=== PATIENT | female | born 1955 | race Asian ===

== ENCOUNTER 2018-11-06 07:48 | Day surgery (SDC) | payer OTHER ==
[2018-11-05 12:41] VITALS: BMI 29.2
--- NOTE | 2018-11-06 08:12 | HP ---
[facility]ellite [facility] [place] - Chief Complaint Chief Complaint: left shoulder pain - Past Medical History Allergies/Adverse Reactions: Allergies Allergy/AdvReac Type Severity Reaction Status Date / Time aspirin Allergy Verified 11/05/18 12:42 - Current Medications Current Medications: Home Medications Medication Instructions Recorded Amlodipine Besylate [Norvasc -] 5 mg PO DAILY 11/05/18 Atorvastatin Ca [Lipitor] 10 mg PO HS 11/05/18 Cholecalciferol (Vitamin D3) 1,000 unit PO DAILY 11/05/18 [Vitamin D3] Hydrocodone/Acetaminophen 1 each PO Q6H #30 tablet MDD 4 11/06/18 [Hydrocodone-Acetamin 5-325 mg] Satellite Physical Exam - Physical Examination General Appearance: Well Nourished, Well Developed, Alert & Oriented x3 ENT: Clear Lung: Normal air movement Heart: Regular rate & rhythm Extremities: Other (left shoulder- + ttp ,dec rom, + neer, + nicholas, + empty can, nvi, MRI + rct) Neurological: Intact, Alert, Oriented Satellite Impression/Plan - Impression/Plan Impression: left shoulder rct Operative Procedure: left shoulder arthroscopy with RCR, SAD Date to be Performed: 11/06/18
[2018-11-06] MEDS ORDERED: ROPIVACAINE HCL 0.5% 30ML VIAL ONE (09:28)
[2018-11-06] MEDS ORDERED: MIDAZOLAM HCL 2 MG/2 ML SINGLE DOSE VIAL ONE ×3 (09:29→09:45)
[2018-11-06] MEDS ORDERED: LIDOCAINE HCL/PF 2% SDV 5ML VIAL ONE (09:45)
[2018-11-06] MEDS ORDERED: PROPOFOL 20 ML ONE ×4 (09:45→11:32)
[2018-11-06] MEDS ORDERED: ceFAZolin SODIUM 1 GM VIAL IVPB ONE (10:43)
[2018-11-06] MEDS ORDERED: LABETALOL HCL 5 MG/1 ML (100MG/20 ML VIAL) ONE (11:43)
[2018-11-06] MEDS ORDERED: ONDANSETRON 4 MG/2 ML VIAL IVPUSH PRN (11:56)
[2018-11-06] MEDS ORDERED: oxyCODONE HCL 5 MG TABLET PO PRN ×2 (11:56)
[2018-11-06] MEDS ORDERED: ePHEDrine SULFATE 50 MG/1 ML AMPULE ONE ×3 (11:59)
[2018-11-06] MEDS ORDERED: LACTATED RINGERS SOLUTION 1,000 ML IV SCH (12:00)
--- NOTE | 2018-11-06 12:08 | OP ---
Operative Note - Note: Operative Date: 11/06/18 ([facility]) Pre-Operative Diagnosis: left shouder rct Operation: left shoulder arthroscopy with RCR, SAD Implants: 2 arthrex swivelocks Post-Operative Diagnosis: Same as Pre-op Surgeon: Brant Santos Park Manager: Yousif Laurent Anesthesiologist/CASH PROCESSOR: Hany Huggins Anesthesia: General, Local Specimens Removed: shavings Estimated Blood Loss (mls): 5 Operative Report Dictated: Yes
[2018-11-06 12:30] VITALS: TEMP 97.3
[2018-11-06 15:21] VITALS: BP 118/67; PULSE 72
--- NOTE | 2018-11-06 15:30 | OP ---
DATE OF OPERATION: 11/06/2018 PREOPERATIVE DIAGNOSIS: Left shoulder impingement syndrome and rotator cuff tear. POSTOPERATIVE DIAGNOSIS: Left shoulder impingement syndrome and rotator cuff tear. PROCEDURE: Left shoulder arthroscopy, subacromial decompression, and arthroscopic rotator cuff repair. SURGEON: Brant Santos MD HEALTH AND SAFETY MANAGER: SIMONA Cody MOBILE MECHANIC: , REGULATORY COMPLIANCE MANAGER ANESTHESIA: Left interscalene block with MAC anesthesia. DRAINS: None. COMPLICATIONS: None. SPECIMENS: Arthroscopic shavings. BLOOD LOSS: Minimal. BLOOD GIVEN: None. FLUID REPLACEMENT: PlasmaLyte, 1000 mL. DESCRIPTION OF PROCEDURE: The patient is a 63-year-old female with a preoperative diagnosis of a left shoulder impingement syndrome and rotator cuff tear. After understanding the potential risks, complications, alternatives, benefits of surgery versus nonsurgical treatment, the patient elected to undergo this procedure. Patient brought to the operating room, peripheral IV placed, and IV sedation was given. Left interscalene block was performed. MAC anesthesia was induced. The patient was placed into the beach-chair position with ample padding throughout. The left upper extremity was prepped and draped in sterile fashion. The bony landmarks were marked out with a marking pen. Posterior portal was established. A diagnostic glenohumeral arthroscopy was performed. The patients glenohumeral joint showed that she had a clear crescent-shaped full-thickness tear through the supraspinatus insertion. The labrum, biceps tendon, and glenohumeral joint all looked good. Next, our attention was turned to the subacromial space. The lateral portal was established under direct visualization using a spinal needle. A Green cannula was then introduced into the subacromial space. A soft tissue bursectomy/extensive debridement was done with the ArthroCare Wand. There was a lot of bursitis. This was removed. This revealed a very large subacromial spur. Bony decompression was done with a 5-mm oval bur. It was fine-tuned in reverse, and then, with a straight shaver, there was no distal clavicle spur. The decompression was quite good. The arm was put through a full range of motion. There were no other points of impingement. After the bursal side bursectomy, this revealed a full-thickness rotator cuff tear. I cleared out the lateral subdeltoid bursa and determined that the repair could be done arthroscopically. Using the Scorpio Needle Passer, 3 FiberWires were placed in the middle to anterior half of the supraspinatus tear. They were put through an Arthrex SwiveLock anchor, put through to the anterior portion of the rotator cuff insertion. This brought about 2/3 of the rotator cuff tear down to where it was supposed to be. Next, I put in 2 additional FiberWires in the more posterior half of the tear, and these were again put through an Arthrex SwiveLock anchor and brought down into the humerus. This completely covered the humerus. The arm was put through a full range of motion. It moved as a unit. The rotator cuff tear was very repairable and covered the entire head as mentioned. The area was copiously irrigated and washed out. All excess saline and debris were removed. Final photographs were taken. The arthroscopy portals were closed with 3-0 nylon. The area was then washed, dried, and covered with Aquacel dressing. The patient was placed into a shoulder immobilizer. The patient was taken down out of the beach-chair position. Total operative repair was about 45 minutes. There were no complications during the case. The patient tolerated the procedure quite well and was brought to the ambulatory recovery room in stable condition. Ashley [id number]
--- NOTE | 2018-11-07 18:35 | PATH ---
Surgical Pathology Report Patient Name: TOSHA BARTON Med. Rec. #: [id number] /Age/Gender: 1955 (Age: 63) / F Account: [id number] Location: [facility] SURGICAL Taken: 11/06/2018 Received: 11/06/2018 Reported: 11/07/2018 Physicians: Brant Santos M.D. Specimen(s) Received LEFT SHOULDER SHAVINGS Clinical History Left shoulder tear Final Diagnosis SHOULDER SHAVINGS, LEFT, ARTHROSCOPY, ROTATOR CUFF REPAIR: FRAGMENTS OF BENIGN CARTILAGE, DENSE FIBROCONNECTIVE TISSUE, ADIPOSE TISSUE, AND SKELETAL MUSCLE. Electronically Signed Sue Aburto M.D. Gross Description Received in formalin, labeled "left shoulder shavings," is a 4.5 x 4.5 x 0.4 cm. aggregate of vargas-yellow soft tissue fragments. A shared services representative portion is submitted in one cassette. /11/06/2018 saudi11/06/2018
== END 2018-11-06 16:00 | disposition home or self-care (01) ==
LOC: JASU-SURG 07:48
PROVIDERS: ATTEND Orthopaedic Surgery
PROC: 0LQ24ZZ Repair Left Shoulder Tendon, Percutaneous Endoscopic Approach (ICD-10-PCS; principal; 2018-11-06 10:30)
PROC: 0RNK4ZZ Release Left Shoulder Joint, Percutaneous Endoscopic Approach (ICD-10-PCS; 2018-11-06 10:30)
DX: M75.122 Complete rotator cuff tear or rupture of left shoulder, not specified as traumatic (principal); M75.42 Impingement syndrome of left shoulder
CPT/HCPCS: 88304-TC

== ENCOUNTER 2020-06-29 13:27 | Inpatient (IN) | payer OTHER ==
[2020-06-29 13:57] VITALS: BMI 30.9
[2020-06-29 19:08] LABS: BASO % 2.2 % (0-2.0); EOS % 3.2 % (0-4.5); HEMATOCRIT 35.9 % (32.4-45.2); HEMOGLOBIN 11.6 GM/dL (10.7-15.3); LYMPH % 15.7 % (8-40); MCH 28.1 pg (25.7-33.7); MCHC 32.4 g/dl (32.0-36.0); MEAN CELL VOLUME 86.7 fl (80-96); MEAN PLT VOLUME 7.4 fl (7.5-11.1); MONO % 11.3 % (3.8-10.2); NEUT % 67.6 % (42.8-82.8); PLATELET COUNT 199 K/MM3 (134-434); RBC 4.14 M/mm3 (3.60-5.2); RDW 14.2 % (11.6-15.6); WHITE BLOOD COUNT 5.1 K/mm3 (4.0-10.0)
[2020-06-29 19:18] LABS: VENOUS BASE EXCESS 1.9 mmol/L (-2-2); VENOUS O2 SATURATION 79.1 % (70-80); VENOUS PCO2 44.2 mmHg (38-52); VENOUS PH 7.402 (7.310-7.410)
[2020-06-29 19:19] LABS: INR 1.1 (0.83-1.09); PROTHROMBIN TIME (PATIENT) 13.3 SEC (9.7-13.0)
[2020-06-29 19:21] LABS: ACTIVATED PTT 27.8 SECONDS (25.2-36.5)
[2020-06-29 19:30] LABS: CHLORIDE 108 mmol/L (98-107); POTASSIUM 3.2 mmol/L (3.5-5.1); SODIUM 145 mmol/L (136-145)
[2020-06-29 19:32] LABS: ALBUMIN 3.6 g/dl (3.4-5.0); ANION GAP 10 MMOL/L (8-16); BLOOD UREA NITROGEN 9.2 mg/dL (7-18); CALCIUM 8.7 mg/dL (8.5-10.1); CO2 27 mmol/L (21-32); GLUCOSE,RANDOM 92 mg/dL (74-106)
[2020-06-29 19:36] LABS: BILIRUBIN,DIRECT 0.2 mg/dL (0.0-0.2); SGOT/AST 20 U/L (15-37); SGPT/ALT 12 U/L (13-61)
[2020-06-29 19:38] LABS: ALK PHOS 62 U/L (45-117); TOT PROT 7.5 g/dl (6.4-8.2)
[2020-06-29 20:49] LABS: LDH 386 U/L (84-246)
[2020-06-30] MEDS ORDERED: KCL 10 MEQ IVPB 10 MEQ/100 ML INFUS.BAG IVPB ONE ×4 (02:30→14:20)
[2020-06-30] MEDS: KCL 10 MEQ IVPB 10 MEQ/100 ML INFUS.BAG IVPB SCH ×5 (02:38→17:03)
[2020-06-30 08:23] LABS: BASO % 2.4 % (0-2.0); EOS % 4.6 % (0-4.5); HEMATOCRIT 30.3 % (32.4-45.2); HEMOGLOBIN 9.8 GM/dL (10.7-15.3); LYMPH % 12.5 % (8-40); MCHC 32.3 g/dl (32.0-36.0); MEAN CELL VOLUME 86.6 fl (80-96); MEAN PLT VOLUME 7.3 fl (7.5-11.1); MONO % 11.3 % (3.8-10.2); NEUT % 69.2 % (42.8-82.8); PLATELET COUNT 165 K/MM3 (134-434); WHITE BLOOD COUNT 4.1 K/mm3 (4.0-10.0)
[2020-06-30 09:22] LABS: ANION GAP 7 MMOL/L (8-16); BLOOD UREA NITROGEN 8.5 mg/dL (7-18); CALCIUM 7.9 mg/dL (8.5-10.1); CHLORIDE 112 mmol/L (98-107); CO2 28 mmol/L (21-32); CREATININE 0.9 mg/dL (0.55-1.3); GLUCOSE,RANDOM 85 mg/dL (74-106); MAGNESIUM 2.1 mg/dL (1.8-2.4); PHOSPHOROUS 4.2 mg/dL (2.5-4.9); POTASSIUM 3.2 mmol/L (3.5-5.1); SODIUM 147 mmol/L (136-145)
[2020-06-30] MEDS ORDERED: amLODIPine BESYLATE 5 MG TABLET (FP) ONE (10:37)
[2020-06-30] MEDS: CHOLECALCIFEROL (VIT D3) 1,000 UNIT (25 MCG) TABLET PO SCH (10:38)
[2020-06-30] MEDS: amLODIPine BESYLATE 5 MG TABLET (FP) PO SCH (10:38)
[2020-06-30 10:50] LABS: LDH 311 U/L (84-246)
[2020-06-30 10:56] LABS: CHOLESTEROL 124 mg/dL (50-200); TRIGLYCERIDES 103 mg/dL (0-150)
[2020-06-30 10:57] LABS: LDL CHOLESTEROL (ONLY SJRH) 74 mg/dL (5-100)
[2020-06-30 10:58] LABS: HDL CHOLESTEROL 38 mg/dL (40-60)
[2020-06-30 14:50] LABS: BF WBC & OTHER NUCLEATED CELLS 8027 /mm3; BODY FLUID HISTIOCYTES 7 %; BODY FLUID MESOTHELIAL 3 %; BODY FLUID MONOCYTE 10 %
[2020-06-30] MEDS ORDERED: oxyCODONE HCL 5 MG TABLET PO PRN (16:20)
[2020-06-30] MEDS: ACETAMINOPHEN 325 MG TABLET (FP) PO PRN (17:04)
[2020-06-30] MEDS: ATORVASTATIN CA 10 MG TABLET (FP) PO SCH (21:40)
[2020-07-01 08:09] LABS: BASO % 1.9 % (0-2.0); EOS % 5.8 % (0-4.5); HEMATOCRIT 31.8 % (32.4-45.2); HEMOGLOBIN 10.2 GM/dL (10.7-15.3); LYMPH % 12.3 % (8-40); MCH 27.9 pg (25.7-33.7); MEAN CELL VOLUME 87.1 fl (80-96); MEAN PLT VOLUME 7.7 fl (7.5-11.1); MONO % 10.2 % (3.8-10.2); NEUT % 69.8 % (42.8-82.8); PLATELET COUNT 163 K/MM3 (134-434); RBC 3.65 M/mm3 (3.60-5.2); RDW 14.2 % (11.6-15.6); WHITE BLOOD COUNT 4.8 K/mm3 (4.0-10.0)
[2020-07-01 08:25] LABS: POTASSIUM 3.8 mmol/L (3.5-5.1)
[2020-07-01 08:46] LABS: ALBUMIN 2.6 g/dl (3.4-5.0); BLOOD UREA NITROGEN 9.4 mg/dL (7-18); CALCIUM 8.1 mg/dL (8.5-10.1); MAGNESIUM 2.2 mg/dL (1.8-2.4)
[2020-07-01 08:48] LABS: URIC ACID 8.3 mg/dL (2.6-7.2)
[2020-07-01 08:49] LABS: CREATININE 0.8 mg/dL (0.55-1.3)
[2020-07-01 08:50] LABS: BILIRUBIN,TOTAL 0.8 mg/dL (0.2-1)
[2020-07-01 08:52] LABS: TOT PROT 5.7 g/dl (6.4-8.2)
[2020-07-01] MEDS: CHOLECALCIFEROL (VIT D3) 1,000 UNIT (25 MCG) TABLET PO SCH (09:59)
[2020-07-01] MEDS: amLODIPine BESYLATE 5 MG TABLET (FP) PO SCH (09:59)
[2020-07-01 13:09] LABS: BODY FLUID ALBUMIN 2.6 g/dL (Not Estab.)
[2020-07-01] MEDS ORDERED: VANCOMYCIN 1 GRAM (PRE-DOCKED) 1,000 MG/250 ML BAG IVPB ONE (14:07)
[2020-07-01] MEDS ORDERED: PIPERACILLIN/TAZOB 4.5 GM 4.5 GM in DEXTROSE 5%-WATER 100 ML IVPB ONE (14:07)
[2020-07-01] MEDS: ACETAMINOPHEN 325 MG TABLET (FP) PO PRN (14:09)
[2020-07-01] MEDS ORDERED: PIPERACILLIN/TAZOBACTAM 4.5 GM VIAL IVPB ONE (14:13)
[2020-07-01] MEDS ORDERED: DEXTROSE 5%-WATER 100 ML IVPB ONE (14:14)
[2020-07-01 16:36] LABS: HIV INTERPRETATION NEGATIVE (NEGATIVE)
[2020-07-01 19:11] LABS: EPI CELLS 9 /uL (0-25.1); HYALINE CASTS 5 /uL (0-3.1); PH,URINE 5.5 (5.0-8.0); URINE APPEARANCE CLOUDY; URINE BACTERIA >9,000 /uL (0-1359); URINE BILIRUBIN NEGATIVE (NEGATIVE); URINE COLOR YELLOW; URINE GLUCOSE (UA) NEGATIVE (NEGATIVE); URINE KETONE NEGATIVE (NEGATIVE); URINE LEUK ESTERASE 2+ (NEGATIVE); URINE NITRITE POSITIVE (NEGATIVE); URINE PROTEIN NEGATIVE (NEGATIVE); URINE RBC 14 /uL (0-23.9); URINE UROBILINOGEN 0.2 mg/dL (0.2-1.0); URINE WBC 1205 /uL (0-25.8)
[2020-07-01] MEDS: ATORVASTATIN CA 10 MG TABLET (FP) PO SCH (22:15)
[2020-07-01 22:43] LABS: YEAST NEGATIVE (NEGATIVE)
[2020-07-02 08:11] LABS: BASO % 1.2 % (0-2.0); EOS % 7.6 % (0-4.5); HEMATOCRIT 32.9 % (32.4-45.2); HEMOGLOBIN 10.5 GM/dL (10.7-15.3); LYMPH % 13.2 % (8-40); MCH 27.5 pg (25.7-33.7); MCHC 31.9 g/dl (32.0-36.0); MEAN CELL VOLUME 86.4 fl (80-96); MEAN PLT VOLUME 7.5 fl (7.5-11.1); PLATELET COUNT 182 K/MM3 (134-434); RDW 13.9 % (11.6-15.6); WHITE BLOOD COUNT 4.5 K/mm3 (4.0-10.0)
[2020-07-02 08:21] LABS: POTASSIUM 3.5 mmol/L (3.5-5.1)
[2020-07-02 08:34] LABS: BILIRUBIN,TOTAL 0.6 mg/dL (0.2-1); TOT PROT 5.8 g/dl (6.4-8.2)
[2020-07-02 08:43] LABS: ALBUMIN 2.6 g/dl (3.4-5.0); BLOOD UREA NITROGEN 8.8 mg/dL (7-18)
[2020-07-02 08:47] LABS: CALCIUM 8.1 mg/dL (8.5-10.1); CREATININE 0.9 mg/dL (0.55-1.3)
[2020-07-02 08:48] LABS: MAGNESIUM 2.1 mg/dL (1.8-2.4)
[2020-07-02] MEDS: amLODIPine BESYLATE 5 MG TABLET (FP) PO SCH (09:46)
[2020-07-02] MEDS: CHOLECALCIFEROL (VIT D3) 1,000 UNIT (25 MCG) TABLET PO SCH (09:46)
[2020-07-02] MEDS ORDERED: ENOXAPARIN NA (PORCINE) 40 MG/0.4 ML DISP.SYRIN SQ SCH (10:00)
[2020-07-02] MEDS ORDERED: PIPERACILLIN/TAZOBACTAM 3.375 GM VIAL IVPB ONE ×2 (13:42→17:46)
[2020-07-02] MEDS ORDERED: DEXTROSE 5%-WATER - 50 ML IVPB ONE ×2 (13:43→17:47)
[2020-07-02] MEDS: PIPERACILLIN/TAZOB 3.375 GM 3.375 GM in DEXTROSE 5%-WATER - 50 ML IVPB SCH ×2 (13:46→17:50)
[2020-07-02 18:14] VITALS: BP 123/83; PULSE 74; TEMP 98.8
[2020-07-03 19:10] LABS: HEP B CORE AB, TOT Positive (Negative)
== END 2020-07-02 20:13 | disposition short-term general hospital (02) | DRG 181 ==
LOC: JER 13:27 → JERBED 18:11 → J4W 06-30 15:44
PROVIDERS: ADMIT Internal Medicine; ATTEND Nurse Practitioner Family
PROC: 0W9B30Z Drainage of Left Pleural Cavity with Drainage Device, Percutaneous Approach (ICD-10-PCS; principal; 2020-06-30)
DX: D38.2 Neoplasm of uncertain behavior of pleura (principal); J93.9 Pneumothorax, unspecified; J90 Pleural effusion, not elsewhere classified; J98.11 Atelectasis; E66.9 Obesity, unspecified; Z68.31 Body mass index [BMI] 31.0-31.9, adult; I10 Essential (primary) hypertension; J35.9 Chronic disease of tonsils and adenoids, unspecified; E87.6 Hypokalemia; R19.09 Other intra-abdominal and pelvic swelling, mass and lump; E78.5 Hyperlipidemia, unspecified; Z20.828 Contact with and (suspected) exposure to other viral communicable diseases; R50.9 Fever, unspecified; N28.89 Other specified disorders of kidney and ureter; I35.9 Nonrheumatic aortic valve disorder, unspecified
CPT/HCPCS: 32557; 36415; 71045-TC-FY; 71275-TC; 74177-TC; 80048; 80053; 80061; 81003; 82042; 82150; 82232; 82248; 82465; 82550; 82728; 82803; 82945; 83605; 83615; 83721; 83735; 83986; 84100; 84157; 84443; 84478; 84484; 84550; 85025; 85379; 85610; 85651; 85730; 86140; 86704; 86705; 86706; 86707; 86708; 86709; 87040; 87070; 87075; 87086; 87102; 87116; 87186; 87205; 87206; 87210; 87340; 87389; 88108; 88300-TC; 88305-TC; 88341-TC; 93005; 93010; 93306-TC; 99285-25; C9803; Q9967; U0003